=== PATIENT | male | born 1975 | race American Indian/Alaskan Native ===

== ENCOUNTER 2016-10-08 01:03 | Emergency (ER) | payer MEDICARE, OTHER ==
[2016-10-08 01:15] VITALS: BP 160/95
--- NOTE | 2016-10-08 01:20 | EDM.PDOC ---
ED HPI Allergic Reaction - General Chief Complaint: Allergic Reaction Stated Complaint: NO PAIN TINGLING ALL OVER Time Seen by Provider: 10/08/16 01:20 Source of Information: Reports: Patient History Limitations: Reports: No limitations - History of Present Illness INITIAL COMMENTS - FREE TEXT/NARRATIVE: 41-year-old male presents the ED with sudden onset of generalized itching. He states he took a new medication which is a homeopathic substance that is supposed to be taken at nighttime for leg cramp relief. This is the first time he ever used this medication. Within 20 minutes to half hour he started developed generalized itching. This started a good hour and a half ago. He is staying with his in a hotel here in [place]. He has no trouble with phonation and doesn't feel like his throat is closing in. Denies any cough or wheezing in his chest. No hives have been identified thus far. He is a type II diabetic and uses metformin for control. No other new medications have been introduced to him in the last several months. Symptom Onset Date: 10/08/16 Symptom Onset Time: 12:30 Timing/Duration: Reports: Constant Location, Skin: Reports: generalized (generalized pruritus. Can't stop scratching) Characteristics: Reports: other (O. rashes at this time. No erythema either.) Quality: Reports: Itching Severity: severe Known identified source: possible/maybe (newest medication taken at bedtime tonight. It is a homeopathic medication that contains multiple herbs and is designed for relief of leg cramps. This is the first tablets of these overtaken. ) Place of Occurrence: other (local hotel where he is staying.) Associated Symptoms: Reports: no other symptoms. 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 05/07/16 [History] metFORMIN [Glucophage XR] 1,000 mg PO BIDMEALS 05/07/16 [History] Sulfamethoxazole/Trimethoprim [Sulfamethoxazole-Tmp Ds Tablet] 1 each PO DAILY 10/08/16 [History] amLODIPine [Norvasc] 5 mg PO BID 10/08/16 [History] Past Medical History HEENT History: Reports: Hard of hearing Other HEENT History: hearing aids bilaterally Cardiovascular History: Reports: Hypertension Musculoskeletal History: Reports: Arthritis Other Musculoskeletal History: Bilat knees Endocrine/Metabolic History: Reports: Diabetes, type II (controlled with metformin) - Infectious Disease History Infectious Disease History: Reports: MRSA - Past Surgical History GI Surgical History: Reports: Appendectomy, Other (see below) Other GI Surgeries/Procedures: Gastric bipass Social & Family History - Family History Family Medical History: Noncontributory - Tobacco Use Smoking Status *Q: Former Smoker Years of Tobacco use: 15 Packs/Tins Daily: 1 Used Tobacco, but Quit: Yes Month Tobacco Last Used: 3 Second Hand Smoke Exposure: No - Caffeine Use Caffeine Use: Reports: Soda - Recreational Drug Use Recreational Drug Use: No - Living Situation & Occupation Living situation: Reports: Occupation: unemployed ED ROS ALLERGIC REACTION - Review of Systems Review Of Systems: See Below Constitutional: Denies: fever, chills, malaise, weakness, fatigue, decreased appetite, weight loss HEENT: Reports: No symptoms, Other (nose no throat closure.) Respiratory: Reports: no symptoms Cardiovascular: Reports: No symptoms, Other (appreciates his blood pressure is much higher than normal upon arrival.) Endocrine: Reports: no symptoms GI/Abdominal: Reports: No symptoms : Reports: no symptoms Musculoskeletal: Reports: back pain Skin: Reports: no symptoms (chronic low back pain) Neurological: Reports: no symptoms Psychiatric: Reports: No symptoms Hematologic/Lymphatic: Reports: no symptoms ED EXAM GENERAL NO PERIP PULSE - Physical Exam Exam: See Below Exam Limited By: No limitations General Appearance: alert, WD/WN, moderate distress (can stop scratching. Itches everywhere. No skin erythema or urticaria identified) Eye Exam: bilateral eye: normal inspection Ears: normal TMs Throat/Mouth: Normal inspection, Normal lips, Normal oropharynx, Other Head: atraumatic (uvula and floor of mouth are normal.), normocephalic Neck: normal inspection, supple, non-tender, full range of motion. No: lymphadenopathy (L), lymphadenopathy (R) Respiratory/Chest: no respiratory distress, normal breath sounds, no accessory muscle use, chest non-tender, respiratory distress (mild tachypnea.) Cardiovascular: regular rate, rhythm ( Aleve to be due to being anxious.), no gallop, no murmur, no rub, tachycardia (mild tachycardia at rest.) GI/Abdominal: other (morbidly obese. Limits ability to palpate any solid organs. Bowel sounds are normal) Extremities: normal inspection, normal range of motion, non-tender, no pedal edema, normal capillary refill, other Neurological: alert (no synovitis or joint swelling), oriented, CN II-XII intact , normal cognition, normal gait Psychiatric: normal affect, normal mood Skin Exam: Dry, Intact, Normal color, No rash Course - Vital Signs Last Recorded V/S: Last Vital Signs Temp 37.0 C 10/08/16 01:10 Pulse 107 H 10/08/16 01:10 Resp 20 10/08/16 01:10 BP 160/95 H 10/08/16 01:10 Pulse Ox 98 10/08/16 02:42 - Orders/Labs/Meds Orders: Active Orders 24 hr Category Date Time Status Sodium Chloride 0.9% [Normal Saline] 1,000 ml Med 10/08/16 01:30 Active IV ASDIRECTED Medication Orders Sodium Chloride (Normal Saline) 1,000 mls @ 150 mls/hr IV ASDIRECTED MARILEE Last Admin: 10/08/16 01:34 Dose: 150 mls/hr Meds: Medications Generic Name Dose Route Start Last Admin Trade Name Freq PRN Reason Stop Dose Admin Sodium Chloride 1,000 mls @ 150 mls/hr 10/08/16 01:30 10/08/16 01:34 Normal Saline IV 150 mls/hr ASDIRECTED MARILEE Administration Discontinued Medications Generic Name Dose Route Start Last Admin Trade Name Joe PRN Reason Stop Dose Admin Diphenhydramine HCl 50 mg 10/08/16 01:25 10/08/16 01:36 Benadryl IVPUSH 10/08/16 01:26 50 mg ONETIME ONE Administration Famotidine 20 mg 10/08/16 01:25 10/08/16 01:36 Pepcid IVPUSH 10/08/16 01:26 20 mg ONETIME ONE Administration Methylprednisolone Sodium Succinate 125 mg 10/08/16 01:25 10/08/16 01:35 Solu-Medrol IVPUSH 10/08/16 01:26 125 mg ONETIME ONE Administration - Radiology Interpretation Free Text/Narrative:: 41-year-old [place] presents to the ED with sudden onset of generalized pruritus. He states it seemed to start 20-30 minutes after he taking a new medication for leg cramps. It is a homeopathic medication that has a mixture of herbs in it. He's never taken this before tonight. He has generalized pruritus without development of urticaria or erythema at this time. No respiratory embarrassment or evidence of involvement of the throat. Plan he will receive IV normal saline at 150 mils per hour. Bentyl 50 mg IV with Pepcid 20 mg IV and Solu-Medrol 125 mg IV for acute relief of symptoms. - Re-Assessments/Exams Free Text/Narrative Re-Assessment/Exam: 10/08/16 02:01patient reports he is started to feel less itchy. He has no filling of throat closure and no feeling of heaviness in his chest or wheezing. 10/08/16 02:44has no further itch. He is quite drowsy from the Benadryl. He is having his , pick him up from the hotel where they are staying. Advised he may take Benadryl 50 mg by mouth every 6 hours if needed for recurrence of it or development of rash. Departure - Departure Time of Disposition: 02:44 Disposition: Home, Self-Care 01 Condition: fair Clinical Impression: Allergic reaction of correct medicinal substance properly administered Instructions: Drug Allergy, [id number] Referrals: PCP,Not In Area [Primary Care Provider] - Forms: ED Department Discharge Additional Instructions: evaluation in the emergency department today in regards to development of generalized itching after taking a new homeopathic medication designed to help relieve leg cramps. He contains numerous herbal compounds which are not well- known to me. He started to have generalized itching within 20-30 minutes of taking the tablet. He never did develop any respiratory problems or throat closure. No hives ever did occur. You're treated for allergic response with intravenous Benadryl 50 mg and Pepcid 20 mg and Solu-Medrol 125 mg IV. It's unclear how long this medication may cause allergic type reaction but typically usually at occasions cause symptoms for 24-72 hours. May use Benadryl 50 mg by mouth every 6 hours as needed for relief of itching. The Solu-Medrol will prevent any serious or worsening allergic response. It will howover elevate your blood sugars for the next 2-3 daysand then they will return towards normal. Of course return to the hospital for any more serious allergic reaction occurs such as trouble breathing swallowing or tongue swelling etc. Again this is highly unlikely to occur. - My Orders Last 24 Hours: My Active Orders 10/08/16 01:30 Sodium Chloride 0.9% [Normal Saline] 1,000 ml IV ASDIRECTED - Assessment/Plan Last 24 Hours: My Active Orders 10/08/16 01:30 Sodium Chloride 0.9% [Normal Saline] 1,000 ml IV ASDIRECTED
[2016-10-08] MEDS ORDERED: methylPREDNISolone Sodium Succinate 125 MG/2 ML SDV IVPUSH ONE (01:25)
[2016-10-08] MEDS ORDERED: Famotidine 20 MG/2 ML SDV IVPUSH ONE (01:25)
[2016-10-08] MEDS ORDERED: diphenhydrAMINE 50 MG/ML SDV IVPUSH ONE (01:25)
[2016-10-08] MEDS ORDERED: Sodium Chloride 0.9% 1,000 ML IV SCH (01:30)
== END 2016-10-08 02:47 | disposition home or self-care (01) ==
LOC: JD.ED 01:03
DX: L29.9 Pruritus, unspecified (principal); T50.905A Adverse effect of unspecified drugs, medicaments and biological substances, initial encounter; I10 Essential (primary) hypertension; E11.9 Type 2 diabetes mellitus without complications; M19.90 Unspecified osteoarthritis, unspecified site; Z87.891 Personal history of nicotine dependence; Z90.49 Acquired absence of other specified parts of digestive tract; Z79.84 Long term (current) use of oral hypoglycemic drugs; Z79.899 Other long term (current) drug therapy; Z88.1 Allergy status to other antibiotic agents; Z88.5 Allergy status to narcotic agent; Z91.040 Latex allergy status
CPT/HCPCS: 96361; 96374; 96375; 99283; J1200; J2930; J7040; 99284